=== PATIENT | male | born 1990 | race Caucasian/White ===

== ENCOUNTER 2024-03-15 16:09 | Emergency (ER) | payer OTHER ==
[~2024-03-15] VITALS: Ht 180.3 cm; Wt 81.6 kg
[2024-03-15 16:15] VITALS: BP 146/109; PULSE 74; RESP 20; TEMP 98.1; O2SAT 100
[2024-03-15] MEDS ORDERED: AMOX875T3 PO (16:33)
[2024-03-15] MEDS ORDERED: NAPR-1704 PO (16:33)
== END 2024-03-15 16:38 | disposition home or self-care (01) ==
LOC: MED 16:09
DX: K08.89 Other specified disorders of teeth and supporting structures (principal); Z79.899 Other long term (current) drug therapy
CPT/HCPCS: 99283

== ENCOUNTER 2024-03-16 00:57 | Emergency (ER) | payer OTHER ==
[~2024-03-16] VITALS: Ht 180.3 cm; Wt 81.6 kg
[~2024-03-16 00:57] MED LIST: AMOX875T3 PO; NAPR-1704 PO
[2024-03-16 01:24] VITALS: BP 137/101; PULSE 78; RESP 17; TEMP 98.2; O2SAT 99
== END 2024-03-16 04:22 | disposition left against medical advice (07) ==
LOC: MED 00:57
DX: K08.89 Other specified disorders of teeth and supporting structures (principal); Z53.21 Procedure and treatment not carried out due to patient leaving prior to being seen by health care provider